=== PATIENT | female | born 1980 | race Caucasian/White ===

== ENCOUNTER 2016-11-20 09:41 | Emergency (ER) | payer MEDICAID ==
[~2016-11-20] VITALS: Ht 160 cm; Wt 68.0 kg
[2016-11-20 10:26] LABS: BASOPHIL % 0.7 % (0-2); PLATELET COUNT 231 x10^3mcL (130-400); RED CELL DISTRIBUTION WIDTH 12.9 % (11.5-14.5)
[2016-11-20 10:36] LABS: CALCIUM 8.9 mg/dL (8.5-10.1); CARBON DIOXIDE 28.5 mmol/L (21-32); CHLORIDE SERUM 107 mmol/L (98-107); CREATININE SERUM 0.7 mg/dL (0.6-1.0); GFR1 > 60 mL/min; GLUCOSE SERUM 90 mg/dL (74-106); POTASSIUM SERUM 4.3 mmol/L (3.5-5.1); SODIUM SERUM 142 mmol/L (136-145)
[2016-11-20 10:42] LABS: ALBUMIN 3.5 g/dL (3.4-5.0); ALKALINE PHOSPHATASE 70 U/L (46-116); ALT/SGPT 32 U/L (14-59); AMYLASE 71 U/L (25-115); AST/SGOT 17 U/L (15-37); BILIRUBIN TOTAL 0.4 mg/dL (0.20-1.00); LIPASE 112 IU/L (73-393); TOTAL PROTEIN, SERUM 7.8 g/dL (6.4-8.2)
[2016-11-20 11:39] VITALS: BP 112/60
== END 2016-11-20 11:39 | disposition home or self-care (01) ==
LOC: ED 09:41
PROVIDERS: Emergency Medicine
DX: K80.50 Calculus of bile duct without cholangitis or cholecystitis without obstruction (principal)
CPT/HCPCS: 83880; Q0092

== ENCOUNTER 2017-03-21 22:47 | Emergency (ER) | payer MEDICAID ==
[2017-03-22 00:02] VITALS: BP 132/79
== END 2017-03-22 00:02 | disposition home or self-care (01) ==
LOC: ED 22:47
DX: L30.9 Dermatitis, unspecified (principal); Z79.899 Other long term (current) drug therapy

== ENCOUNTER 2017-06-20 10:07 | Emergency (ER) | payer MEDICAID ==
[~2017-06-20] VITALS: Ht 160 cm; Wt 64.2 kg
[2017-06-20 11:34] LABS: BASOPHIL % 0.2 % (0-2); PLATELET COUNT 259 x10^3mcL (130-400); RED CELL DISTRIBUTION WIDTH 13.6 % (11.5-14.5)
[2017-06-20 13:18] LABS: CARBON DIOXIDE 28.4 mmol/L (21-32); CHLORIDE SERUM 106 mmol/L (98-107); CREATININE SERUM 0.7 mg/dL (0.6-1.0); GFR1 > 60 mL/min; GLUCOSE SERUM 103 mg/dL (74-106); POTASSIUM SERUM 4.1 mmol/L (3.5-5.1); SODIUM SERUM 141 mmol/L (136-145)
[2017-06-20 13:23] LABS: ALBUMIN 3.6 g/dL (3.4-5.0); ALKALINE PHOSPHATASE 57 U/L (46-116); ALT/SGPT 29 U/L (14-59); AST/SGOT 22 U/L (15-37); LIPASE 91 IU/L (73-393)
[2017-06-20 13:25] LABS: TOTAL PROTEIN, SERUM 8.4 g/dL (6.4-8.2)
[2017-06-20 13:39] VITALS: BP 116/53
== END 2017-06-20 13:40 | disposition home or self-care (01) ==
LOC: ED 10:07
PROVIDERS: Emergency Medicine
DX: R10.11 Right upper quadrant pain (principal)
CPT/HCPCS: 36415; J1885; Q0162

== ENCOUNTER 2017-09-11 22:16 | Emergency (ER) | payer MEDICAID ==
[~2017-09-11] VITALS: Ht 160 cm; Wt 66.3 kg
[2017-09-11 22:57] VITALS: Ht 160 cm; Wt 66.3 kg
[2017-09-12 01:45] LABS: BASOPHIL % 0.6 % (0-2); PLATELET COUNT 309 x10^3mcL (130-400); RED CELL DISTRIBUTION WIDTH 12.8 % (11.5-14.5)
[2017-09-12 02:04] LABS: CALCIUM 9.4 mg/dL (8.5-10.1); CARBON DIOXIDE 29.2 mmol/L (21-32); CHLORIDE SERUM 101 mmol/L (98-107); CREATININE SERUM 0.7 mg/dL (0.6-1.0); GFR1 > 60 mL/min; GLUCOSE SERUM 77 mg/dL (74-106); POTASSIUM SERUM 3.5 mmol/L (3.5-5.1); SODIUM SERUM 139 mmol/L (136-145)
[2017-09-12 02:08] LABS: ALBUMIN 3.8 g/dL (3.4-5.0); ALKALINE PHOSPHATASE 79 U/L (46-116); ALT/SGPT 31 U/L (14-59); AST/SGOT 22 U/L (15-37); BILIRUBIN TOTAL 0.18 mg/dL (0.20-1.00); LIPASE 191 IU/L (73-393)
[2017-09-12 02:13] LABS: TOTAL PROTEIN, SERUM 8.8 g/dL (6.4-8.2)
[2017-09-12 04:38] VITALS: BP 124/85
== END 2017-09-12 04:38 | disposition home or self-care (01) ==
LOC: ED 22:16
PROVIDERS: Emergency Medicine
DX: R07.89 Other chest pain (principal)
CPT/HCPCS: 83880; J2270; J2405; J7030; Q0092

== ENCOUNTER 2017-10-26 22:58 | Emergency (ER) | payer MEDICAID ==
[~2017-10-26] VITALS: Ht 157.5 cm; Wt 68.5 kg
[2017-10-26 23:03] VITALS: Ht 157.5 cm; Wt 68.5 kg
[2017-10-27 02:24] VITALS: BP 114/72
== END 2017-10-27 02:24 | disposition home or self-care (01) ==
LOC: ED 22:58
DX: N94.6 Dysmenorrhea, unspecified (principal)
CPT/HCPCS: 87491; 87591

== ENCOUNTER 2018-06-18 08:00 | Emergency (ER) | payer MEDICAID ==
[~2018-06-18] VITALS: Ht 162.6 cm; Wt 63.5 kg
[2018-06-18 08:07] VITALS: Ht 162.6 cm; Wt 63.5 kg
[2018-06-18 08:52] LABS: BASOPHIL % 0.4 % (0-2); PLATELET COUNT 282 x10^3mcL (130-400); RED CELL DISTRIBUTION WIDTH 12.8 % (11.5-14.5)
[2018-06-18 09:16] LABS: CALCIUM 8.6 mg/dL (8.5-10.1); CARBON DIOXIDE 31.5 mmol/L (21-32); CHLORIDE SERUM 109 mmol/L (98-107); CREATININE SERUM 0.8 mg/dL (0.6-1.0); GFR1 > 60 mL/min; GLUCOSE SERUM 102 mg/dL (74-106); POTASSIUM SERUM 4.4 mmol/L (3.5-5.1); SODIUM SERUM 142 mmol/L (136-145)
[2018-06-18 09:21] LABS: ALBUMIN 3.2 g/dL (3.4-5.0); ALKALINE PHOSPHATASE 73 U/L (46-116); ALT/SGPT 21 U/L (14-59); AST/SGOT 9 U/L (15-37); BILIRUBIN TOTAL 0.31 mg/dL (0.20-1.00); TOTAL PROTEIN, SERUM 7.8 g/dL (6.4-8.2)
[2018-06-18 10:52] VITALS: BP 118/59
== END 2018-06-18 11:23 | disposition home or self-care (01) ==
LOC: ED 08:00
PROVIDERS: Emergency Medicine
DX: N12 Tubulo-interstitial nephritis, not specified as acute or chronic (principal); Z98.51 Tubal ligation status; Z90.49 Acquired absence of other specified parts of digestive tract
CPT/HCPCS: J1885; Q0092

== ENCOUNTER 2018-09-06 21:38 | Emergency (ER) | payer MEDICAID ==
[~2018-09-06] VITALS: Ht 170.2 cm; Wt 61.2 kg
[2018-09-06 21:43] VITALS: Ht 170.2 cm; Wt 61.2 kg
[2018-09-06 22:52] VITALS: BP 128/85
== END 2018-09-06 22:52 | disposition home or self-care (01) ==
LOC: ED 21:38
DX: F41.9 Anxiety disorder, unspecified (principal); Z98.51 Tubal ligation status; Z90.49 Acquired absence of other specified parts of digestive tract

== ENCOUNTER 2019-03-23 18:49 | Emergency (ER) | payer MEDICAID ==
[~2019-03-23] VITALS: Ht 160 cm; Wt 61.9 kg
[2019-03-23 19:45] VITALS: Ht 160 cm; Wt 61.9 kg
[2019-03-23 21:51] VITALS: BP 120/78
== END 2019-03-23 21:51 | disposition home or self-care (01) ==
LOC: ED 18:49
DX: M79.674 Pain in right toe(s) (principal); M79.89 Other specified soft tissue disorders; Z90.49 Acquired absence of other specified parts of digestive tract; Z98.51 Tubal ligation status

== ENCOUNTER 2019-05-16 18:26 | Emergency (ER) | payer MEDICAID ==
[~2019-05-16] VITALS: Ht 160 cm; Wt 60.3 kg
[2019-05-16 18:32] VITALS: Ht 160 cm; Wt 60.3 kg
[2019-05-16 22:00] VITALS: BP 118/81
== END 2019-05-16 22:00 | disposition home or self-care (01) ==
LOC: ED 18:26
DX: R51 Headache (principal); Z90.49 Acquired absence of other specified parts of digestive tract; Z98.51 Tubal ligation status
CPT/HCPCS: J1885